=== PATIENT | female | born 1950 | race Caucasian/White ===

== ENCOUNTER 2017-05-09 09:01 | Emergency (ER) | payer OTHER, MEDICARE ==
[~2017-05-09] VITALS: Ht 147.3 cm; Wt 54.4 kg
[~2017-05-09 09:01] MED LIST: CARBIDOPA PO; CLONAZEPAM0.5 M2 PO; DILAUDID2 MG PO; LACTULOSE10 GM/15 M PO; MELATONIN5 M7 PO; OMEPRAZOLE40 M1 PO; PAROXETINE HCL40 M1 PO; STALEVO PO; [UNRECOGNIZED DRUG - OTHER] PO
--- NOTE | 2017-05-09 10:11 | RADIOLOGY REPORT ---
EXAMINATION: XR SHOULDER, LEFT XR HUMERUS, LEFT CLINICAL INFORMATION: Trauma COMPARISON: Left shoulder 05/04/2017 TECHNIQUE: 3 views of the left shoulder. 2 views of the left humerus. FINDINGS: Left shoulder: Glenohumeral alignment appears anatomic. There is a mildly displaced/angulated fracture of the mid to inferior scapula, with a few tiny fracture fragments along the lateral border; this appears new from 05/04/2017. The acromioclavicular joint is intact with mild degenerative change. Left humerus: No fracture identified. IMPRESSION: Mildly displaced/angulated fracture of the mid to inferior scapula.
--- NOTE | 2017-05-09 10:39 | ED UPPER/LOWER EXTREMITY COMPL ---
History of Present Illness General Chief Complaint: Upper Extremity Injury Stated Complaint: LEFT ARM PAIN S/P 2 FALLS Source: patient, family, old records Exam Limitations: no limitations Vital Signs & Intake/Output Vital Signs & Intake/Output ED Intake and Output 05/10 0000 05/09 1200 Intake Total 0 Output Total Balance 0 Intake, Oral 0 Patient 120 lb Weight Weight Reported by Patient Measurement Method Allergies Coded Allergies: ciprofloxacin (From CIPRO) (GI DISTRESS 08/24/16) fluconazole (YEAST INFECTION TO MOUTH 08/24/16) metronidazole (From FLAGYL) (GI DISTRESS/VOMITING 08/24/16) Reconcile Medications Acetaminophen (Tylenol Extra Strength) 500 MG TABLET 2 TAB PO QPM PAIN ( Reported) Carbidopa/Levodopa (Rytary ER 36.25 MG-145 MG Cap) 36.25 MG-145 MG CAPSULE.ER 3 CAP PO DAILY PARKINSONS (Reported) Carbidopa/Levodopa (Rytary ER 36.25 MG-145 MG Cap) 36.25 MG-145 MG CAPSULE.ER 2 CAP PO 4 TIMES/DAY PARKINSONS (Reported) Cholecalciferol (Vitamin D3) 1,000 UNIT TABLET 1 TAB PO DAILY VITAMIN SUPPORT (Reported) Clonazepam 0.5 MG TABLET 1 TAB PO TID SPASMS (Reported) Cyanocobalamin (Vitamin B-12) (Cyanocobalamin Injection) 1,000 MCG/ML VIAL 1 ML IM Q30D VITAMIN SUPPORT (Reported) Ergocalciferol (Vitamin D2) (Vitamin D2) 50,000 UNIT CAPSULE 1 CAP PO QW VITAMIN SUPPORT (Reported) Gabapentin 300 MG CAPSULE 1 CAP PO TID NEUROPATHY (Reported) Melatonin 5 MG TABLET 1 TAB PO QPM SLEEP (Reported) Niacin (Niaspan) 500 MG TAB.ER.24H 1 TAB PO QPM HEART (Reported) Omeprazole 40 MG CAPSULE.DR 1 CAP PO DAILY HEARTBURN (Reported) Paroxetine HCl 40 MG TABLET 1 TAB PO DAILY MENTAL HEALTH (Reported) Tramadol HCl 50 MG TABLET 1 TAB PO BIDP PRN pain Triage Note: PT STATES SHE HAS PARKINSONS AND FELL LAST TUESDAY INJURING LEFT ARM. XRAY WAS NEGATIVE THEN PT FELL ON LEFT ARM AGAIN LAST NIGHT. PT DENIES LOC, HIT HEAD "A LITTLE" . Triage Nurses Notes Reviewed? yes Onset: Abrupt Duration: day(s): Timing: recent history Severity: moderate Severity Numbers: 10 Pain/Injury Location: Left: Shoulder. Method of Injury: fall Modifying Factors: Worsens With: movement. HPI: 67YO female with hx of parkinson's disease, fibromyalgia presents to ED complining of Left shoulder pain after fall last night. Patient reports recent fall 1 week ago onto left shoulder as well. Last week xrays without evidence of fracture. Last night patient fell again, she did hit her head, no loss of conciousness. Patient reports headache last night and this morning. Patient is unsure of how she fell, states that she was standing and then suddenly had fallen. Today pain in left shoulder is 10/10, sharp. Took 400mg ibuprofen with minimal relief. Patient denies dizziness, lightheadedness, abdominal pain, vomiting, visual changes, pain with inspiration. (Diana Thomas) Past History Travel History Traveled to [place] past 21 day No Medical History Any Pertinent Medical History? see below for history Neurological: Parkinson's disease Gastrointestinal: umbilical hernia Renal: DONATED KIDNEY Musculoskeletal: disk herniation, SCOLIOSIS Psychiatric: anxiety, insomnia Surgical History Surgical History: non-contributory Psychosocial History What is your primary language Israeli Tobacco Use: Never used ETOH Use: denies use Illicit Drug Use: denies illicit drug use Family History Hx Contributory? No (Diana Thomas) Review of Systems Review of Systems Constitutional: Reports: no symptoms. EENTM: Reports: no symptoms. Respiratory: Reports: no symptoms. Cardiovascular: Reports: no symptoms. Gastrointestinal/Abdominal: Reports: no symptoms. Genitourinary: Reports: no symptoms. Musculoskeletal: Reports: see HPI. Skin: Reports: no symptoms. Neurological/Psychological: Reports: see HPI. Hematologic/Endocrine: Reports: no symptoms. Immunological: Reports: no symptoms. All Other Systems: Reviewed and Negative (Diana Thomas) Physical Exam Physical Exam General Appearance: well developed/nourished, no apparent distress, alert, awake Head: atraumatic, normal appearance Eyes: Bilateral: normal appearance, PERRL, EOMI. Ears, Nose, Throat: normal pharynx, normal ENT inspection, hearing grossly normal Neck: normal inspection, supple, full range of motion, no midline tenderness Cardiovascular/Respiratory: normal breath sounds, normal peripheral pulses, regular rate/rhythm, no respiratory distress Peripheral Pulses: 2+ radial (R), 2+ radial (L) Back: normal inspection, normal range of motion, no vertebral tenderness Shoulder Left: active and passive ROM limited d/t pain, tenderness to anterior and posterior shoulder Shoulder Right: normal range of motion, normal inspection Elbow Left: normal range of motion, normal inspection Elbow Right: normal range of motion, normal inspection Hand Left: normal inspection, normal range of motion Hand Right: normal inspection, normal range of motion Neurologic/Tendon: normal sensation, CN II-XII intact Skin: intact, normal color, warm/dry (Angela CAI,Diana Weri) Progress Differential Diagnosis: dislocation, fracture, sprain, tendon injury, ICH Plan of Care: Orders Procedure Date/time Status Regular Diet 05/09 D Active Durable Medical Equipment 05/09 1106 Active TROPONIN LEVEL 05/09 1106 Complete CBC WITHOUT DIFFERENTIAL 05/09 110 Complete EKG 05/09 1106 Active Laboratory Tests 05/09/17 1117: Troponin I < 0.01, CBC w Diff NO MAN DIFF REQ, RBC 4.17 L, MCV 93.1, MCH 31.5 H, MCHC 33.8, RDW 13.6, MPV 7.5, Gran % 76.4 H, Lymphocytes % 16.2 L, Monocytes % 6.7, Eosinophils % 0.4, Basophils % 0.3, Absolute Granulocytes 5.8, Absolute Lymphocytes 1.2, Absolute Monocytes 0.5, Absolute Eosinophils 0, Absolute Basophils 0 X-ray reveals new left scapula fracture, not present on previous x-rays last week. Patient placed in the left shoulder immobilizer, intact distal pulses, no cyanosis present. Patient follow-up with orthopedic regarding her fracture. Given fall with head strike will obtain CT scan to further assess for ICH or cervical fracture. CT scan without acute abnormality, patient's blood work is within normal limits. Patient was medicated with tramadol here in the emergency department. She is seen ambulating following this medication, does not feel too drowsy. Patient instructed to take this medication at home however recommended to take half dose and to rest following dosage to prevent additional falls. The patient is in no acute distress, agrees with the plan of care. The patient was discussed with Dr. Tyson who agrees with this plan. Diagnostic Imaging: Viewed by Me: Radiology Read, CT Scan. Discussed w/RAD: Radiology Read, CT Scan. Radiology Impression: PATIENT: GERARDO KAYE PRESENT AGE: 67 PATIENT ACCOUNT NO: [id number] : 48 LOCATION: ER ORDERING PHYSICIAN: Yong Hinojosa DO (TBS) SERVICE DATE: 05/09/17 EXAM TYPE: RAD - XRY-HUMERUS, LEFT; XRY-SHOULDER COMPLETE-LEFT EXAMINATION: XR SHOULDER, LEFT XR HUMERUS, LEFT CLINICAL INFORMATION: Trauma COMPARISON: Left shoulder 05/04/2017 TECHNIQUE: 3 views of the left shoulder. 2 views of the left humerus. FINDINGS: Left shoulder: Glenohumeral alignment appears anatomic. There is a mildly displaced/angulated fracture of the mid to inferior scapula, with a few tiny fracture fragments along the lateral border; this appears new from . The acromioclavicular joint is intact with mild degenerative change. Left humerus: No fracture identified. IMPRESSION: Mildly displaced/angulated fracture of the mid to inferior scapula. DICTATED BY: Wilner Hawkins MD DATE/ TIME DICTATED:05/09/171001 RIB BENDER:SAILAJA DATE/TIME TRANSCRIBED: 05/09/171001 CONFIDENTIAL, DO NOT COPY WITHOUT APPROPRIATE AUTHORIZATION. < Electronically signed in Other Vendor System> SIGNED BY: Wilner Hawkins MD 05/09/17 1011, PATIENT: GERARDO KAYE PRESENT AGE: 67 PATIENT ACCOUNT NO: [id number] : 48 LOCATION: ER ORDERING PHYSICIAN: Diana CAI SERVICE DATE: 05/09/17110 EXAM TYPE: CAT - CT CERV SPINE WO IV CONTRAST; CT HEAD WO IV CONTRAST EXAMINATION: CT HEAD WITHOUT CONTRAST CT CERVICAL SPINE WITHOUT CONTRAST CLINICAL INFORMATION: 67-year-old woman with fall last night and head injury. COMPARISON: 09/21/[address] TECHNIQUE: Imaging was performed from the skull base to vertex without intravenous administration of contrast. In addition, helical noncontrast CT imaging was acquired through the cervical spine and source images were reviewed along with axial reconstructions and sagittal and coronal MPRs. DLP: 885 mGy-cm FINDINGS: HEAD: No intracranial mass, hemorrhage, or midline shift is visualized. The ventricles and sulci are age-appropriate. No extra-axial collections are identified. The paranasal sinuses and mastoid air cells are well aerated. CERVICAL SPINE: There is no evidence of acute cervical spine fracture. Vertebral bodies remain normal in height. Degenerative endplate remodeling with moderate to severe loss of normal disc space is seen at C3-C4, C4-C5, C5-C6, and C6-C7. There is loss of the normal cervical lordosis and multilevel uncovertebral spurring. No pre- or paravertebral soft tissue abnormality is identified. Limited assessment of the lung apices is unremarkable. IMPRESSION: 1. No acute intracranial pathology. 2. No CT evidence of acute cervical spine fracture or traumatic subluxation. DICTATED BY: Dayana Cerda MD DATE/TIME DICTATED:05/09/171253 RIB BENDER:SAILAJA DATE/TIME TRANSCRIBED:1253 CONFIDENTIAL, DO NOT COPY WITHOUT APPROPRIATE AUTHORIZATION. < Electronically signed in Other Vendor System> SIGNED BY: Dayana Cerda MD 1301, PATIENT: GERARDO KAYE PRESENT AGE: 67 PATIENT ACCOUNT NO: [id number] : 48 LOCATION: [facility] ORDERING PHYSICIAN: Diana CAI SERVICE DATE: 05/09/17 EXAM TYPE: CAT - CT CERV SPINE WO IV CONTRAST; CT HEAD WO IV CONTRAST EXAMINATION: CT HEAD WITHOUT CONTRAST CT CERVICAL SPINE WITHOUT CONTRAST CLINICAL INFORMATION: 67-year-old woman with fall last night and head injury. COMPARISON: 09/21/[address] TECHNIQUE: Imaging was performed from the skull base to vertex without intravenous administration of contrast. In addition, helical noncontrast CT imaging was acquired through the cervical spine and source images were reviewed along with axial reconstructions and sagittal and coronal MPRs. DLP: 885 mGy-cm FINDINGS: HEAD: No intracranial mass, hemorrhage, or midline shift is visualized. The ventricles and sulci are age-appropriate. No extra-axial collections are identified. The paranasal sinuses and mastoid air cells are well aerated. CERVICAL SPINE: There is no evidence of acute cervical spine fracture. Vertebral bodies remain normal in height. Degenerative endplate remodeling with moderate to severe loss of normal disc space is seen at C3-C4, C4-C5, C5-C6, and C6-C7. There is loss of the normal cervical lordosis and multilevel uncovertebral spurring. No pre- or paravertebral soft tissue abnormality is identified. Limited assessment of the lung apices is unremarkable. IMPRESSION: 1. No acute intracranial pathology. 2. No CT evidence of acute cervical spine fracture or traumatic subluxation. DICTATED BY: Dayana Cerda MD DATE/TIME DICTATED:05/09/171253 RIB BENDER:SAILAJA DATE/TIME TRANSCRIBED:1253 CONFIDENTIAL, DO NOT COPY WITHOUT APPROPRIATE AUTHORIZATION. < Electronically signed in Other Vendor System> SIGNED BY: Dayana Cerda MD 1301 Initial ED EKG: normal sinus rhythm (Diana Thomas) Departure Departure Disposition: HOME OR SELF CARE Condition: Stable Clinical Impression Primary Impression: Scapular fracture Secondary Impressions: Fall Referrals: Yusra VASQUES,Nicole Devries (PCP/Family) Additional Instructions: Take half dose tramadol twice a day as needed for pain. Follow-up with control specialist regarding your scapula fracture. Return to the emergency Department with any worsening symptoms or concerns. Please note that there might be incidental findings in your evaluation that are unrelated to the current emergency department visit. Please notify your primary care doctor about this emergency department visit in order to obtain and review all of the testing performed so that these incidental findings can be monitored as needed. If you had an x-ray performed, please understand that some fractures may not be seen on the initial set of x-rays. If your symptoms persist you might need a repeat set of x-rays to check for such a fracture. If you had a laceration evaluated, please understand that foreign bodies such as glass or wood may not be visible to the naked eye or on plain x-rays. If the wound becomes red, swollen, increasingly more painful or if there is any drainage from the wound, please have it reevaluated by a physician for the possibility of a retained foreign body. If you're unable to follow up as outlined in the discharge instructions please return to the emergency department. Thank you for choosing the [facility] Emergency Department for your care. It was a pleasure to serve you today. Departure Forms: Customer Survey General Discharge Information Prescriptions: Current Visit Scripts Tramadol HCl 1 TAB PO BIDP PRN pain #10 TAB (Diana Thomas) PA/SYNTHETIC DEPARTMENT SUPERVISOR Co-Sign Statement Statement: ED Attending supervision documentation- x I saw and evaluated the patient. I have also reviewed all the pertinent lab results and diagnostic results. I agree with the findings and the plan of care as documented in the PA's/SYNTHETIC DEPARTMENT SUPERVISOR's documentation. x I have reviewed the ED Record and agree with the PA's/SYNTHETIC DEPARTMENT SUPERVISOR's documentation. [] Additions or exceptions (if any) to the PAs/SYNTHETIC DEPARTMENT SUPERVISOR's note and plan are summarized below: [] (Jah VASQUES,Jacob)
[2017-05-09] MEDS ORDERED: RYTARY ER 36.21 EACH PO ×2 (10:48)
[2017-05-09] MEDS ORDERED: GABAPENTIN300 M2 PO (10:48)
[2017-05-09] MEDS ORDERED: TYLENOL EXTRA500 M2 PO (10:49)
[2017-05-09] MEDS ORDERED: NIASPAN500 M1 PO (10:50)
[2017-05-09] MEDS ORDERED: CYANOCOBAL1000 MCG/2 IM (10:50)
[2017-05-09] MEDS ORDERED: VITAMIN D250000 UNIT PO (10:51)
[2017-05-09] MEDS ORDERED: VITAMIN D31000 UNI2 PO (10:52)
[2017-05-09 11:27] LABS: ABSOLUTE BASOPHIL COUNT 0 /CUMM (0.0-0.2); ABSOLUTE EOSINOPHIL COUNT 0 /CUMM (0.0-0.7); ABSOLUTE GRANULOCYTE CT 5.8 /CUMM (1.4-6.5); ABSOLUTE LYMPH COUNT 1.2 /CUMM (1.2-3.4); ABSOLUTE MONOCYTE COUNT 0.5 /CUMM (0.10-0.60); BASOPHIL % 0.3 % (0.0-2.0); EOSINOPHIL % 0.4 % (0-5); GRANULOCYTE % 76.4 % (42.2-75.2); HEMATOCRIT 38.8 % (37-47); MEAN CORPUSCULAR HGB 31.5 PG (27.0-31.0); MEAN CORPUSCULAR HGB CONC 33.8 G/DL (33.0-37.0); MEAN CORPUSCULAR VOLUME 93.1 FL (81.0-99.0); MEAN PLATELET VOLUME 7.5 FL (7.4-10.4); PLATELET COUNT 264 /CUMM (130-400); RBC DISTRIBUTION WIDTH 13.6 % (11.5-14.5); RED BLOOD CELL CT 4.17 /CUMM (4.20-5.40); WHITE BLOOD CELL COUNT 7.6 /CUMM (4.8-10.8)
--- NOTE | 2017-05-09 13:01 | CT SCAN REPORT ---
EXAMINATION: CT HEAD WITHOUT CONTRAST CT CERVICAL SPINE WITHOUT CONTRAST CLINICAL INFORMATION: 67-year-old woman with fall last night and head injury. COMPARISON: 09/21/[address] TECHNIQUE: Imaging was performed from the skull base to vertex without intravenous administration of contrast. In addition, helical noncontrast CT imaging was acquired through the cervical spine and source images were reviewed along with axial reconstructions and sagittal and coronal MPRs. DLP: 885 mGy-cm FINDINGS: HEAD: No intracranial mass, hemorrhage, or midline shift is visualized. The ventricles and sulci are age-appropriate. No extra-axial collections are identified. The paranasal sinuses and mastoid air cells are well aerated. CERVICAL SPINE: There is no evidence of acute cervical spine fracture. Vertebral bodies remain normal in height. Degenerative endplate remodeling with moderate to severe loss of normal disc space is seen at C3-C4, C4-C5, C5-C6, and C6-C7. There is loss of the normal cervical lordosis and multilevel uncovertebral spurring. No pre- or paravertebral soft tissue abnormality is identified. Limited assessment of the lung apices is unremarkable. IMPRESSION: 1. No acute intracranial pathology. 2. No CT evidence of acute cervical spine fracture or traumatic subluxation.
[2017-05-09] MEDS ORDERED: TRAMADOL HCL50 M1 PO (13:32)
[2017-05-09 13:40] VITALS: BP 139/76
== END 2017-05-09 13:53 ==
LOC: ERH 09:01
PROVIDERS: Physician Assistant
DX: S42.192A Fracture of other part of scapula, left shoulder, initial encounter for closed fracture (principal); S09.90XA Unspecified injury of head, initial encounter; R51 Headache; W19.XXXA Unspecified fall, initial encounter; Y93.9 Activity, unspecified; Y92.9 Unspecified place or not applicable
CPT/HCPCS: 73030-LT; 73060-LT; 93005; 93010

== ENCOUNTER 2017-06-21 19:13 | Emergency (ER) | payer OTHER, MEDICARE ==
[~2017-06-21] VITALS: Ht 147.3 cm; Wt 54.4 kg
[~2017-06-21 19:13] MED LIST changes: +CYANOCOBAL1000 MCG/2 IM; +GABAPENTIN300 M2 PO; +NIASPAN500 M1 PO; +RYTARY ER 36.21 EACH PO; +TRAMADOL HCL50 M1 PO; +TYLENOL EXTRA500 M2 PO; +VITAMIN D250000 UNIT PO; +VITAMIN D31000 UNI2 PO
--- NOTE | 2017-06-21 20:38 | RADIOLOGY REPORT ---
EXAMINATION: XR HAND, RIGHT CLINICAL INFORMATION: Injury to the index finger. COMPARISON: Right hand 08/02/2016 TECHNIQUE: PA, lateral, and oblique views of the right hand. FINDINGS: There is one full shaft width dorsal dislocation of the middle phalanges at the PIP joint of the index finger. There is no fracture. There is degenerative changes. 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 Similar changes but less severe seen at the DIP joint of the third, fourth and fifth digit as well as the IP joint of the thumb. There is joint narrowing of the first metacarpal carpal joint with marginal bone spur. There is degenerative subchondral sclerosis and cystic changes of the lunate. There is an old healed fracture with residual deformity of the proximal fourth metacarpal. IMPRESSION: 1. Dislocation of the PIP joint of index finger. 2. Degenerative changes of the hand and wrist.
[2017-06-21 22:11] VITALS: BP 147/66
--- NOTE | 2017-06-21 22:14 | ED HAND/WRIST INJURY COMPLAINT ---
History of Present Illness General Chief Complaint: Hand or Wrist Injury Stated Complaint: RIGHT HAND POINTER FINGER INJURY/BRAKE? Source: patient Exam Limitations: no limitations Vital Signs & Intake/Output Vital Signs & Intake/Output Vital Signs Date Time Temp Pulse Resp B/P B/P Pulse O2 O2 Flow FiO2 Mean Ox Delivery Rate 06/21 2210 97.6 82 16 147/66 95 Room Air 06/21 2151 Room Air 06/21 1939 97.8 89 18 95 Room Air ED Intake and Output 06/22 0000 06/21 1200 Intake Total Output Total Balance Patient 120 lb Weight Weight Reported by Patient Measurement Method Allergies Coded Allergies: ciprofloxacin (From CIPRO) (GI DISTRESS 06/21/17) fluconazole (YEAST INFECTION TO MOUTH 06/21/17) metronidazole (From FLAGYL) (GI DISTRESS/VOMITING 06/21/17) Reconcile Medications Acetaminophen (Tylenol Extra Strength) 500 MG TABLET 2 TAB PO QPM PAIN ( Reported) Carbidopa/Levodopa (Rytary ER 36.25 MG-145 MG Cap) 36.25 MG-145 MG CAPSULE.ER 3 CAP PO DAILY PARKINSONS (Reported) Carbidopa/Levodopa (Rytary ER 36.25 MG-145 MG Cap) 36.25 MG-145 MG CAPSULE.ER 2 CAP PO 4 TIMES/DAY PARKINSONS (Reported) Cholecalciferol (Vitamin D3) 1,000 UNIT TABLET 1 TAB PO DAILY VITAMIN SUPPORT (Reported) Clonazepam 0.5 MG TABLET 1 TAB PO TID SPASMS (Reported) Cyanocobalamin (Vitamin B-12) (Cyanocobalamin Injection) 1,000 MCG/ML VIAL 1 ML IM Q30D VITAMIN SUPPORT (Reported) Ergocalciferol (Vitamin D2) (Vitamin D2) 50,000 UNIT CAPSULE 1 CAP PO QW VITAMIN SUPPORT (Reported) Gabapentin 300 MG CAPSULE 1 CAP PO TID NEUROPATHY (Reported) Melatonin 5 MG TABLET 1 TAB PO QPM SLEEP (Reported) Niacin (Niaspan) 500 MG TAB.ER.24H 1 TAB PO QPM HEART (Reported) Omeprazole 40 MG CAPSULE.DR 1 CAP PO DAILY HEARTBURN (Reported) Paroxetine HCl 40 MG TABLET 1 TAB PO DAILY MENTAL HEALTH (Reported) Tramadol HCl 50 MG TABLET 1 TAB PO BIDP PRN pain Triage Note: PT FROM HOME C/O RIGHT HAND POINTER FINGER DISLOCATION? PT STATES 30 MINS PRIOR TO ARRIVAL PT REACHED IN HER CLOSET TO GRAB SOMETHING FELT HERSELF FALLING OVER DUE TO PARKINSONS AND LANDED ON HER RIGHT HAND CAUSING THE INDEX FINGER TO BECOME INURY .PT HAS DEFORMITY NOTED IN TRIAGE. PT MEDICATED IN TRIAGE WITH 975MG TYLENOL PO IN TRIAGE AND AN ICE PACK PROVIDED. XRAY ORDERED. VSS. Triage Nurses Notes Reviewed? yes Occurred: just prior to arrival Duration: hour(s): (1), constant, continues in ED Timing: single episode today Injury Environment: home Severity: moderate, severe Severity Numbers: 8 Pain/Injury Location: Right: 2nd finger. Context: fall Method of Injury: fall No Modifying Factors: none Associated Symptoms: swelling LMP (ages 10-50): unknown : No Patient currently breastfeeds: No HPI: 67-year-old female past medical history of Parkinson's disease presents for evaluation of her fall. Patient states that she was reaching for something in her closet when she tripped and fell on her right outstretched hand. She states that her point finger hit the wall in front of her and she reports pain at the DIP and the RT second digit. There was no head strike or loss of consciousness. She is able to get up and ambulate on her own. No changes in vision vomiting chest pain shortness of breath no other injuries. (Jam Carmona) Past History Travel History Traveled to [place] past 21 day No Medical History Any Pertinent Medical History? see below for history Neurological: Parkinson's disease Gastrointestinal: irritable bowel syndrome, umbilical hernia Renal: DONATED KIDNEY Musculoskeletal: disk herniation, SCOLIOSIS Psychiatric: anxiety, insomnia Surgical History Surgical History: non-contributory Psychosocial History What is your primary language [place] Tobacco Use: Never used Family History Hx Contributory? No (Jam Carmona) Review of Systems Review of Systems Constitutional: Reports: no symptoms. EENTM: Reports: no symptoms. Respiratory: Reports: no symptoms. Cardiovascular: Reports: no symptoms. GI: Reports: no symptoms. Genitourinary: Reports: no symptoms. Musculoskeletal: Reports: see HPI, joint pain, joint swelling. Skin: Reports: no symptoms. Neurological/Psychological: Reports: no symptoms. Hematologic/Endocrine: Reports: no symptoms. Immunologic/Allergic: Reports: no symptoms. All Other Systems: Reviewed and Negative (Jam Carmona) Physical Exam Physical Exam General Appearance: well developed/nourished, no apparent distress, awake Head: atraumatic, normal appearance Eyes: Bilateral: normal appearance, PERRL, EOMI. Ears, Nose, Throat: hearing grossly normal Neck: normal inspection, supple, full range of motion, no midline tenderness Cardiovascular/Respiratory: normal breath sounds, normal peripheral pulses, regular rate/rhythm, no respiratory distress Back: normal inspection, normal range of motion, no vertebral tenderness Shoulder Left: normal range of motion, normal inspection Shoulder Right: normal range of motion, normal inspection Elbow Left: normal range of motion, normal inspection Elbow Right: normal range of motion, normal inspection Forearm Left: normal range of motion, normal inspection Forearm Right: normal range of motion, normal inspection Wrist Left: normal range of motion, normal inspection Wrist Right: normal range of motion, normal inspection Hand Left: normal inspection, normal range of motion Hand Right: deformity, limited range of motion, evidence of injury, swelling, tender, 2nd finger, THERE IS GROSS DEFORMITY AT THE RIGHT SECOND DIGIT dip JOINT. iT APPEARS DISLOCATED. tHERE IS SOFT TISSUE SWELLING AND TENDERNESS TO PALPATION. cAP REFILL LESS THAN 2 SECONDS NO EVIDENCE OF ANY OTHER INJURIES OF THE OTHER DIGITS. nO SNUFFBOX TENDERNESS NO WRIST SWELLING Neurologic/Tendon: normal sensation, normal motor functions, normal tendon functions, responds to pain, no evidence tendon injury, no pulse deficit Skin: intact, normal color, warm/dry (Arben CAI,Jam) Progress Differential Diagnosis: contusion, dislocation, fracture, septic arthritis Plan of Care: Patient seen and evaluated. She has a right second digit dislocation at the DIP joint. No evidence of fracture on x-ray. Patient is medicated with Tylenol and the finger was reduced placed into a splint. X-ray confirms successful reduction. Patient instructed to rest ice elevation compression wear splint at all times continue Tylenol as needed for pain. Follow-up with orthopedics. Discussed return precautions case discussed with Dr. Myers he agrees. Diagnostic Imaging: Viewed by Me: Radiology Read. Discussed w/RAD: Radiology Read. Radiology Impression: PATIENT: GERARDO KAYE PRESENT AGE: 67 PATIENT ACCOUNT NO: [id number] : 48 LOCATION: [facility] ORDERING PHYSICIAN: Jam CAI SERVICE DATE: 06/21/17 EXAM TYPE: RAD - XRY-FINGERS, RIGHT EXAMINATION: XR FINGER, RIGHT CLINICAL INFORMATION: 67-year -old female patient with history of dislocation proximal interphalangeal joint of the right second finger. COMPARISON: Prereduction x-rays done earlier this evening TECHNIQUE: 3 views of the right second finger. FINDINGS: The dislocation has been successfully reduced and the finger is in a splint. The osteoarthritis has been described in the report. IMPRESSION: Successful reduction of the proximal interphalangeal joint of the second finger. No fracture. DICTATED BY: Dwayne Gonzalez MD DATE/TIME DICTATED:06/21/172206 LIMEHOUSE WORKER: CALDERÓN DATE/TIME TRANSCRIBED:06/21/172206 CONFIDENTIAL, DO NOT COPY WITHOUT APPROPRIATE AUTHORIZATION. <Electronically signed in Other Vendor System> , PATIENT: GERARDO KAYE PRESENT AGE: 67 PATIENT ACCOUNT NO: [id number] : 48 LOCATION: [facility] ORDERING PHYSICIAN: Jam CAI SERVICE DATE: 06/21/17 EXAM TYPE: RAD - XRY-HAND, RIGHT EXAMINATION: XR HAND, RIGHT CLINICAL INFORMATION: Injury to the index finger. COMPARISON: Right hand 08/02/2016 TECHNIQUE: PA, lateral, and oblique views of the right hand. FINDINGS: There is one full shaft width dorsal dislocation of the middle phalanges at the PIP joint of the index finger. There is no fracture. There is degenerative changes. 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 Similar changes but less severe seen at the DIP joint of the third, fourth and fifth digit as well as the IP joint of the thumb. There is joint narrowing of the first metacarpal carpal joint with marginal bone spur. There is degenerative subchondral sclerosis and cystic changes of the lunate. There is an old healed fracture with residual deformity of the proximal fourth metacarpal. IMPRESSION: 1. Dislocation of the PIP joint of index finger. 2. Degenerative changes of the hand and wrist. DICTATED BY: Dewey Colorado MD DATE/TIME DICTATED:06/21/172029 LIMEHOUSE WORKER :RAD.CALDERÓN DATE/TIME TRANSCRIBED:06/21/172029 CONFIDENTIAL, DO NOT COPY WITHOUT APPROPRIATE AUTHORIZATION. (Jam Carmona) Departure Departure Disposition: HOME OR SELF CARE Condition: Stable Clinical Impression Primary Impression: Dislocation of distal interphalangeal (DIP) joint of right index finger Qualifiers: Encounter type: initial encounter Qualified Code: S63.290A - Dislocation of distal interphalangeal joint of right index finger, initial encounter Referrals: Yusra VASQUES,Nicole Devries (PCP/Family) Donald VASQUES,Ugo Catherine Additional Instructions: Rest, apply ice for 15-20 minutes every few hours keep finger elevated wear splint at all times. make a follow-up appointment with orthopedic doctor Dr. Bennett as soon as possible. Tylenol for pain. Monitor your symptoms return with any concerns. Departure Forms: Customer Survey General Discharge Information (Jam Carmona) PA/EMERGENCY COMMUNICATIONS DISPATCHER Co-Sign Statement Statement: ED Attending supervision documentation- [X] I saw and evaluated the patient. I have also reviewed all the pertinent lab results and diagnostic results. I agree with the findings and the plan of care as documented in the PA's/EMERGENCY COMMUNICATIONS DISPATCHER's documentation. [] I have reviewed the ED Record and agree with the PA's/EMERGENCY COMMUNICATIONS DISPATCHER's documentation. [] Additions or exceptions (if any) to the PAs/EMERGENCY COMMUNICATIONS DISPATCHER's note and plan are summarized below: [] (Yong Hinojosa DO
== END 2017-06-21 22:31 ==
LOC: ERH 19:13
DX: S63.270A Dislocation of unspecified interphalangeal joint of right index finger, initial encounter (principal); W19.XXXA Unspecified fall, initial encounter; Y92.009 Unspecified place in unspecified non-institutional (private) residence as the place of occurrence of the external cause; Y93.9 Activity, unspecified
CPT/HCPCS: 73130-RT; 73140-RT